=== PATIENT | male | born 1950 | race Caucasian/White ===

== ENCOUNTER 2017-04-26 16:42 | Emergency (ER) | payer MEDICARE, BC | END 2017-04-26 18:27 | disposition home or self-care (01) | LOC: SCSER 16:42 | DX: S61.201A Unspecified open wound of left index finger without damage to nail, initial encounter (principal); E78.5 Hyperlipidemia, unspecified; I10 Essential (primary) hypertension; Z87.891 Personal history of nicotine dependence; I48.91 Unspecified atrial fibrillation; Z79.899 Other long term (current) drug therapy; Z23 Encounter for immunization; W26.0XXA Contact with knife, initial encounter | CPT/HCPCS: 99283 ==

== ENCOUNTER 2017-07-25 17:34 | Emergency (ER) | payer MEDICARE, BC ==
[2017-07-25] MEDS ORDERED: Metoclopramide HCl 10 MG/2 ML VIAL ONE (17:44)
[2017-07-25] MEDS ORDERED: diphenhydrAMINE 50 MG/ML VIAL ONE (17:44)
[2017-07-25] MEDS ORDERED: Ketorolac Tromethamine 30 MG/ML VIAL ONE (18:09)
--- NOTE | 2017-07-25 18:30 | CT ---
CT OF HEAD NONCONTRAST: Indication: Pain. FINDINGS: No intracranial hemorrhage, mass effect, midline shift or ventriculomegaly. Minimal paranasal sinus m ucosal thickening is present. IMPRESSION: No acute intracranial abnormalities. POS: [facility]
== END 2017-07-25 18:46 | disposition home or self-care (01) ==
LOC: SCSER 17:34
DX: R51 Headache (principal); I48.91 Unspecified atrial fibrillation; E78.5 Hyperlipidemia, unspecified; I10 Essential (primary) hypertension; F17.220 Nicotine dependence, chewing tobacco, uncomplicated; Z79.899 Other long term (current) drug therapy
CPT/HCPCS: 70450; 96365; 96375; J1200; J1885; J2765

== ENCOUNTER 2018-01-07 06:56 | Observation (INO) | payer MEDICARE, BC ==
[2018-01-07 07:20] LABS: #Basophils 0.1 thou/uL (0.0-0.2); #Eosinphils 0.2 thou/uL (0.0-0.7); #Monocytes 0.6 thou/uL (0.11-0.59); #Neutrophils 4.9 thou/uL (1.40-6.50); %Eosinophils 2.7 % (0.0-10.0); %Lymphocytes 25.8 % (21.0-51.0); %Monocytes 7.2 % (0.0-10.0); %Neutrophils 63.4 % (42.0-75.0); Hemoglobin 14.4 g/dL (14.0-18.0); Mean Corpuscular HGB CONC 36.3 g/dL (32.0-36.0); Mean Corpuscular Hemoglobin 30.3 pg (27.0-31.0); Mean Corpuscular Volume 83.4 fL (78.0-98.0); Mean Platelet Volume 6.5 fL (7.4-10.4); Platelet Count 223 thou/uL (130-400); RBC Distribution Width 12.2 % (11.5-14.5); Red Blood Cell (RBC) Count 4.75 mill/uL (4.70-6.10); White Blood Cell (WBC) Count 7.7 thou/uL (4.8-10.8)
[2018-01-07 07:39] LABS: ALT (SGPT) 29 U/L (8-55); AST (SGOT) 18 U/L (5-34); Albumin 3.9 g/dL (3.4-4.8); Alkaline Phosphatase 107 U/L (40-150); Anion Gap 12 mmol/L (10-20); BUN (Urea Nitrogen) 13 mg/dL (8.4-25.7); Bilirubin, Total 0.4 mg/dL (0.2-1.2); Calc. Creatinine Clearance 0 mL/min (70-130); Carbon Dioxide 22 mmol/L (23-31); Chloride 109 mmol/L (98-107); Estimated GFR-MDRD 86; Globulin 2.6 g/dL (2.4-3.5); Glucose 110 mg/dL (80-115); Potassium 3.3 mmol/L (3.5-5.1); Protein, Total 6.5 g/dL (5.8-8.1); Sodium 140 mmol/L (136-145)
[2018-01-07] MEDS ORDERED: Ondansetron ODT 4 MG TAB SL PRN (10:34)
[2018-01-07] MEDS ORDERED: Sodium Chloride 0.9% 1,000 ML IV SCH (10:34)
[2018-01-07] MEDS ORDERED: Ondansetron HCl/PF 4 MG/2 ML Vial IVP PRN ×2 (10:34→12:59)
[2018-01-07 10:36] VITALS: BMI 26.5
[2018-01-07] MEDS ORDERED: Fleet Enema 133 ML BOT PR SCH (11:30)
--- NOTE | 2018-01-07 12:42 | HP ---
DATE OF ADMISSION: 01/07/2018 CHIEF COMPLAINT: Hematochezia. HISTORY OF PRESENT ILLNESS: The patient is a 67-year-old male with past medical history of atrial fi brillation, not on anticoagulation, hyperlipidemia, hypertension, migraines, and osteoarthritis, pres enting with complaints of hematochezia. He underwent colonoscopy on 01/06/2018 with the findings of a 3 mm polyp within the sigmoid colon that was removed with hot snare polypectomy. He also had a 1.2 cm polyp in the rectosigmoid area that was removed in piecemeal fashion with hot snare polypectomy i n addition to treatment with argon plasma coagulation. After the procedure, he did not have any prob lems and was able to tolerate both solid and liquid meals up until last night when he had the acute o nset of bright red blood per rectum. The hematochezia was characterized as blood present both in the toilet and on the toilet paper itself with approximately 1/4 cup to 1/2 cup of blood. This was not always associated with the passage of stool, but instead he did have bowel movements consisting only of blood. He did have some mild dizziness associated with this passage of hematochezia both yesterda y and today, but has been minimal with no loss of consciousness. He also endorses increased suprapub ic abdominal pain today, characterizes a cramping type sensation, intermittent, nonradiating and woul d reach a severity of 3-4/10. There has been no clear alleviating or exacerbating factors during thi s admission. Otherwise, he denies any nausea, vomiting, fevers, chills, hematemesis, melena, weight loss, dysphagia or odynophagia. REVIEW OF SYSTEMS: A 10-category review of systems was obtained with all responses negative except f or the pertinent positives as listed in the HPI. PAST MEDICAL HISTORY: As per HPI. PAST SURGICAL HISTORY: Cardiac ablation, anal fissure repair, bilateral shoulder surgeries (multiple ), wrist fusion, left thumb reattached, knuckle replacement x3 and bicep tendon repair. FAMILY HISTORY: Denies any GI malignancies. SOCIAL HISTORY: Denies any tobacco, alcohol or illicit drug use. Prior heavy use of alcohol, but no ne currently. OUTPATIENT MEDICATIONS: Atenolol 75 mg daily, tamsulosin 0.4 mg daily, sertraline 150 mg daily, simv astatin 40 mg daily, trazodone 100 mg daily, tramadol 50 mg as needed every 6 hours, diclofenac 75 mg twice daily, butalbital/acetaminophen/caffeine as needed. ALLERGIES: CODEINE (itching). PHYSICAL EXAMINATION: VITAL SIGNS: Temperature 97.8, pulse 53, blood pressure 151/83, respiratory rate 14, satting 97% on room air. GENERAL: The patient is lying in bed with no acute distress. Alert and oriented x4. NECK: Supple. No JVD noted. CARDIOVASCULAR: Bradycardic rate with no discernible murmurs, gallops or rubs. Normal rhythm. RESPIRATORY: Clear to auscultation bilaterally with no discernible wheezes or rales. ABDOMEN: Normoactive bowel sounds, soft, nondistended, mild tenderness to palpation in the right low er quadrant and suprapubic regions. EXTREMITIES: No cyanosis, clubbing or edema. LABORATORY DATA: CBC with a white blood cell count of 7.7, hemoglobin 14.4, hematocrit 39.7, platele ts 223,000. Chemistry with a sodium of 140, potassium 3.3, chloride 109, CO2 22, BUN 13, creatinine 0.39, glucose 110. AST 18, ALT 29, alkaline phosphatase 107, total bilirubin 0.4, albumin 3.9. IMAGING DATA: No current GI imaging is available for review. However, he did have colonoscopy perfo rmed on 01/06/2018 showing the presence of a 3 mm sigmoid colon polyp and a 1.2 cm rectosigmoid colon polyp, both removed with hot snare polypectomy. ASSESSMENT AND PLAN: The patient is a 67-year-old male with past medical history of atrial fibrillat ion, hyperlipidemia, hypertension, migraines and osteoarthritis, presenting with hematochezia, consis tent with a post-polypectomy bleed. Post-polypectomy bleeding. The patient is presenting with the acute onset of bright red blood per re ctum characterizes approximately 1/4 cup to 1/2 cup of blood that was associated with and without the passage of stool. Given that he had a recent colonoscopy yesterday with a large, difficult to remov e polyp in the rectosigmoid colon, it is likely that he is bleeding from this particular source. Dif ferential could also include diverticular bleeding (the patient did have diverticulosis present on 's exam) arteriovenous malformation, Dieulafoy lesion or injury from the colonoscopy itself (u nlikely). RECOMMENDATIONS: 1. We would continue patient n.p.o. status in preparation for procedure later on this afternoon. 2. We will perform a flexible sigmoidoscopy for evaluation of the rectosigmoid area as this is the p robable source of bleeding. We will administer Fleets enemas x2 prior to the procedure. 3. Would continue to trend H&H and transfuse as necessary to maintain an H&H of 7/. 4. Continue to monitor clinically for signs of active GI bleeding. 5. Further recommendations to follow flexible sigmoidoscopy. We will continue to follow. Please call with any questions.
[2018-01-07] MEDS ORDERED: Promethazine HCl 25 MG/ML VIAL IM PRN (12:59)
[2018-01-07] MEDS ORDERED: Promethazine HCl 25 MG/ML VIAL SLOW IVP PRN (12:59)
[2018-01-07] MEDS ORDERED: Lidocaine 1% PF 5 ML VIAL ONE (14:21)
[2018-01-07] MEDS ORDERED: PROPOFOL 200 MG/20 ML VIAL ONE (14:21)
--- NOTE | 2018-01-07 15:59 | OP ---
DATE OF PROCEDURE: 01/07/2018 PROCEDURE: Flexible sigmoidoscopy with control of hemorrhage. INDICATION FOR PROCEDURE: Hematochezia, post-polypectomy bleed. DESCRIPTION OF PROCEDURE: After the risks and benefits of the procedure were explained to the patien t including risks of bleeding, infection, perforation, reaction to anesthesia and/or pain, informed c onsent was obtained. The patient was then taken to the endoscopy suite where deep sedation was admin istered via propofol and anesthesia support. Once adequate sedation was achieved, the standard colon oscope was introduced into the rectum and advanced to approximately 80 cm past the anal verge at [facility] a large amount of both solid and liquid stool impeded further progress. The quality of the p rep was poor. The patient tolerated the procedure well with no immediate perioperative complications . DIGITAL RECTAL EXAM: Normal. COLON FINDINGS: A large amount of both solid and liquid stool was seen in the distal transverse and proximal descending colon significantly limiting visualization of the colonic mucosa. Aggressive irr igation and suctioning was performed in the descending, sigmoid colon, and rectum with moderate impro vement in mucosal visualization of the mucosa seen and 8-9 mm ulceration was seen in the sigmoid colo n that appeared to be in a state of healing. He did not have any evidence of active/recent bleeding associated with it nor did it have any high risk stigmata of bleeding. However, a 2-2.5 cm ulceratio n was seen in the rectum at approximately 13 cm past the anal verge. This ulceration did exhibit mil d oozing of blood as well as a red spot along the left lateral aspect of the ulceration consistent wi th high risk stigmata of bleeding. Hemoclips x6 were then placed to approximate the mucosal defect w ith good hemostasis achieved. Minimal bleeding was noted during and after the procedure. The proced ure was then terminated with no rectal retroflexion for fear of dislodging the Hemoclips. IMPRESSION: 1. Large amount of retained solid and liquid stool seen in the proximal transverse colon further imp eding progress and visualization of the colonic mucosa. Aggressive irrigation and suctioning was per formed of the descending, sigmoid, and rectum with adequate visualization for purposes of gastrointes tinal bleeding. 2. An 8-9 mm ulceration seen in the sigmoid colon without evidence of active/recent bleeding. 3. An 2-2.5 cm ulceration seen in the rectum at 13 cm past the anal verge with evidence of active/re cent bleeding, status post Hemoclip placement x6 with good hemostasis achieved. RECOMMENDATIONS: 1. We would continue to trend hemoglobin and hematocrit and transfuse as necessary to maintain hemog lobin and hematocrit of 7/21. 2. Continue to monitor clinically for signs of active gastrointestinal bleeding. 3. Continue to monitor overnight given increased risk of bleeding from this particular site. 4. We will place the patient on clear liquid diet for now.
[2018-01-07] MEDS ORDERED: Acetaminophen 500 MG TAB PO PRN (16:20)
[2018-01-07] MEDS ORDERED: traZODone HCl 50 MG TAB PO PRN (20:12)
[2018-01-08 05:58] LABS: #Eosinphils 0.2 thou/uL (0.0-0.7); #Lymphocytes 1.5 thou/uL (1.20-3.40); #Monocytes 0.6 thou/uL (0.11-0.59); #Neutrophils 4.7 thou/uL (1.40-6.50); %Basophils 0.4 % (0.0-1.0); %Eosinophils 2.7 % (0.0-10.0); %Lymphocytes 21.6 % (21.0-51.0); %Monocytes 8.4 % (0.0-10.0); %Neutrophils 66.9 % (42.0-75.0); Hemoglobin 13.3 g/dL (14.0-18.0); Mean Corpuscular Hemoglobin 30.4 pg (27.0-31.0); Mean Corpuscular Volume 89.6 fL (78.0-98.0); Platelet Count 178 thou/uL (130-400); RBC Distribution Width 13.1 % (11.5-14.5); Red Blood Cell (RBC) Count 4.36 mill/uL (4.70-6.10)
[2018-01-08 08:04] VITALS: BP 136/76; TEMP 97.9
--- NOTE | 2018-01-08 17:34 | DIS ---
DATE OF ADMISSION: 01/07/2018 DATE OF DISCHARGE: 01/08/2018 REASON FOR ADMISSION: Hematochezia, post-polypectomy bleed. HOSPITAL COURSE: The patient is a 67-year-old male with past medical history of atrial fibrillation, not on anticoagulation, hyperlipidemia, hypertension, migraines, and osteoarthritis who initially pr esented with complaints of hematochezia. He had undergone colonoscopy on 01/06/2018 with the finding of a 3 mm polyp within the sigmoid colon that was removed with hot snare polypectomy. However, he a lso had a 1.2 cm polyp in the rectosigmoid area that was removed in piecemeal fashion with hot snare polypectomy. With the increase in his hematochezia, this was felt to be due to a post-polypectomy bl eeding. Subsequently, he underwent flexible sigmoidoscopy on 01/07/2018 with large ulcerations seen in the rectosigmoid region at approximately 13 cm past the anal verge, this ulceration did exhibit m ild oozing of blood as well as a dark red spot along the left lateral aspect of the ulceration consid er to be high risk stigmata of bleeding. The mucosal defect was then approximated with approximately 6 Hemoclips with good hemostasis achieved. After the procedure, he exhibited no further evidence of hematochezia with stable H&H following morning as well as remaining hemodynamically stable over that time period as well. He was ultimately discharged to home with followup in the GI clinic. OUTPATIENT MEDICATIONS: The patient was given instructions to resume all of his outpatient medicatio ns. DIET: The patient can resume normal regular diet. ACTIVITY: The patient can resume normal physical activity ad amish as needed. FOLLOWUP: The patient was given instructions to follow up in the GI clinic as needed or if you exper ience any additional hematochezia.
== END 2018-01-08 11:00 | disposition home or self-care (01) ==
LOC: SCSER 06:56 → SURG A 07:50
PROVIDERS: ADMIT Internal Medicine; ATTEND Internal Medicine
PROC: 0W3P8ZZ Control Bleeding in Gastrointestinal Tract, Via Natural or Artificial Opening Endoscopic (ICD-10-PCS; principal; 2018-01-07)
DX: K91.840 Postprocedural hemorrhage of a digestive system organ or structure following a digestive system procedure (principal); E78.5 Hyperlipidemia, unspecified; I10 Essential (primary) hypertension; Z88.0 Allergy status to penicillin; Z79.899 Other long term (current) drug therapy
CPT/HCPCS: 45334; 80053; 85025 ×2; 86850; 86900; 86901; 94760; 96360; 96361 ×2; 99284; G0378; 36415; J2001; J2704

== ENCOUNTER 2018-02-15 18:34 | Emergency (ER) | payer MEDICARE, BC ==
[2018-02-15] MEDS ORDERED: Dexamethasone 10 MG/ML VIAL ONE ×2 (20:20→20:23)
--- NOTE | 2018-02-15 20:21 | RAD ---
TWO VIEWS OF THE CHEST: 02/15/18 COMPARISON: 02/14/13. HISTORY: Upper respiratory infection/cough. FINDINGS: Two views of the chest show normal sized cardiomediastinal silhouette. There is no evidence of consol idation, mass, or pleural effusion. Postsurgical changes are seen in both shoulders. IMPRESSION: No evidence of acute cardiopulmonary disease. POS: [facility]
== END 2018-02-15 20:45 | disposition home or self-care (01) ==
LOC: SCSER 18:34
DX: J06.9 Acute upper respiratory infection, unspecified (principal); J20.9 Acute bronchitis, unspecified; G47.30 Sleep apnea, unspecified; I48.91 Unspecified atrial fibrillation; E78.5 Hyperlipidemia, unspecified; F41.9 Anxiety disorder, unspecified; F17.220 Nicotine dependence, chewing tobacco, uncomplicated; Z79.899 Other long term (current) drug therapy
CPT/HCPCS: 71046; 96372; J1100; J7620

== ENCOUNTER 2018-06-16 17:47 | Emergency (ER) | payer MEDICARE, BC ==
[2018-06-16] MEDS ORDERED: Bacitracin Zinc 1 Packet ONE (18:46)
--- NOTE | 2018-06-16 18:58 | RAD ---
RIGHT THUMB RADIOGRAPHS THREE VIEWS 06/16/18 PROVIDED CLINICAL HISTORY: Injury. FINDINGS: There is no evidence for fracture or other acute osseous abnormality. If there is peristent clinical concern, conservative management and followup imaging are advised. IMPRESSION: As above. POS: [facility]
== END 2018-06-16 18:54 | disposition home or self-care (01) ==
LOC: SCSER 17:47
DX: S61.011A Laceration without foreign body of right thumb without damage to nail, initial encounter (principal); I49.9 Cardiac arrhythmia, unspecified; G47.30 Sleep apnea, unspecified; I48.91 Unspecified atrial fibrillation; E78.5 Hyperlipidemia, unspecified; I10 Essential (primary) hypertension; F41.9 Anxiety disorder, unspecified; Z87.891 Personal history of nicotine dependence; W29.4XXA Contact with nail gun, initial encounter

== ENCOUNTER 2018-07-22 09:21 | Emergency (ER) | payer MEDICARE, BC ==
--- NOTE | 2018-07-22 10:21 | RAD ---
TWO VIEWS OF THE CHEST: COMPARISON: 02/15/2018. HISTORY: Shortness of breath and cough. FINDINGS: Two views of the chest show normal sized cardiomediastinal silhouette. There is no evidence of consol idation, mass, or pleural effusion. Hardware is seen in both shoulders from bilateral shoulder surger y. IMPRESSION: No evidence of acute cardiopulmonary disease. POS: [facility]
== END 2018-07-22 10:40 | disposition home or self-care (01) ==
LOC: SCSER 09:21
DX: J20.9 Acute bronchitis, unspecified (principal); I48.91 Unspecified atrial fibrillation; G47.30 Sleep apnea, unspecified; E78.5 Hyperlipidemia, unspecified; I10 Essential (primary) hypertension; F41.9 Anxiety disorder, unspecified; Z87.891 Personal history of nicotine dependence; Z79.899 Other long term (current) drug therapy
CPT/HCPCS: 71046; 87804; 94640; J7620

== ENCOUNTER 2018-11-20 08:22 | Emergency (ER) | payer MEDICARE, BC ==
[2018-11-20] MEDS ORDERED: Ketorolac Tromethamine 30 MG/ML VIAL ONE (08:48)
[2018-11-20] MEDS ORDERED: Morphine 4 MG/ML VIAL ONE (08:48)
--- NOTE | 2018-11-20 10:26 | RAD ---
LUMBAR SPINE 2 VIEWS: HISTORY: Low back pain. FINDINGS: Comparison is made with the exam of 02/14/2013. There are degenerative changes most prominent at L4-5 and L5-S1 levels. No fracture, subluxation, or bony destruction is seen. IMPRESSION: Lumbar spondylosis. POS: [facility]
== END 2018-11-20 09:28 | disposition home or self-care (01) ==
LOC: SCSER 08:22
DX: M54.5 Low back pain (principal); G47.30 Sleep apnea, unspecified; I48.91 Unspecified atrial fibrillation; E78.5 Hyperlipidemia, unspecified; I10 Essential (primary) hypertension; F41.9 Anxiety disorder, unspecified; Z87.891 Personal history of nicotine dependence; Z79.899 Other long term (current) drug therapy
CPT/HCPCS: 72100; 96372; J1885; J2270

== ENCOUNTER 2019-01-01 09:04 | Emergency (ER) | payer MEDICARE, BC ==
[2019-01-01] MEDS ORDERED: Lidocaine 1% w/Epinephrine 1:100K 20 ML VIAL ONE (09:27)
[2019-01-01] MEDS ORDERED: Lidocaine 1% 20 ML MDV ONE (09:28)
--- NOTE | 2019-01-01 09:40 | RAD ---
EXAM: XR Finger(s) Lt Min 2 View DATE: 01/01/2019 9:15 AM INDICATION: Foreign body in the left index finger COMPARISON: None. FINDING: There is advanced osteoarthrosis involving the left index and long finger IP joints. There is erosive change involving the metacarpal phalangeal heads with hooked osteophytes of the index and long finger. No overt radiopaque foreign body is evident. IMPRESSION: 1. No acute fracture or subluxation. 2. No radiopaque foreign body. 3. Erosive change with hooked osteophytes involving the index and long finger metacarpal heads can be seen with entities such as CPPD deposition disease and hemachromatosis. 4. Prominent IP osteoarthrosis of the left index and long finger.
[2019-01-01] MEDS ORDERED: Bacitracin 1 PK ONE (09:52)
== END 2019-01-01 10:06 | disposition home or self-care (01) ==
LOC: SCSER 09:04
DX: S60.451A Superficial foreign body of left index finger, initial encounter (principal); G47.30 Sleep apnea, unspecified; I48.91 Unspecified atrial fibrillation; E78.5 Hyperlipidemia, unspecified; I10 Essential (primary) hypertension; F41.9 Anxiety disorder, unspecified; Z87.891 Personal history of nicotine dependence; Z79.899 Other long term (current) drug therapy; W45.8XXA Other foreign body or object entering through skin, initial encounter
CPT/HCPCS: J2001

== ENCOUNTER 2019-03-06 12:56 | Outpatient (CLI) | payer MEDICARE, BC ==
--- NOTE | 2019-03-06 15:53 | MRI ---
MRI Lumbar Spine Noncontrast: HISTORY: Pain COMPARISON: MRI LUMBAR SPINE: No prior MRI exams available FINDINGS: Conus medullaris is normal in morphology and terminates at the L2 level. Distention of the partially imaged urinary bladder. Slight fullness of each renal pelvis. Small exoph ytic cyst emanates posteriorly from the left kidney. Suggestion of a right adrenal mass although not reliably assessed. L1-2:Mild disc bulge without significant stenosis. Mild disc space narrowing. Moderate right and mild left facet osteoarthritis. L2-3:Minimal disc bulge without significant stenosis. Mild facet osteoarthritis. L3-4:Left paracentral through subarticular disc protrusion, superimposed upon disc osteophyte complex . There is mild to moderate central canal stenosis and crowding of the traversing left L4 nerve root. No high-grade foraminal stenosis. Moderate right and mild left facet osteoarthritis. L4-5:Central disc protrusion superimposed on broad-based disc osteophyte. There is mild central canal stenosis. Evidence of prior right hemilaminectomy. Crowding of the bilateral traversing L5 nerve roots, more pronounced on the right, and there is mild bilateral neural foraminal stenosis. Moderate bilateral facet osteoarthritis. L5-S1:Suggestion of prior laminotomy. Thecal sac is patent. There is broad-based disc osteophyte with moderate left and [id number] right neural foraminal stenosis, due to disc osteophyte formation and moderate bilateral facet osteoarthritis. Postcontrast imaging reveals no evidence of mass-producing enhancement within the vertebral canal. IMPRESSION: Multilevel degenerative change of the postoperative lumbar spine, as above. There is no mass-producing enhancement within the vertebral canal identified. Incidental note of signal alteration of right adrenal gland. This could relate to a right adrenal mas s such as a myelolipoma, although cannot be fully evaluated on the basis of this exam. Recommend follow-up adrenal mass protocol Limited CT abdomen. Telephone call with findings placed to patient's physician Dr. Miguel Patel. Transcribed Date/Time: 03/06/2019 4:22 PM
== END 2019-03-06 12:57 | disposition home or self-care (01) ==
LOC: SCSMRI 12:56
PROVIDERS: ATTEND Family Medicine
DX: M54.42 Lumbago with sciatica, left side (principal); M47.816 Spondylosis without myelopathy or radiculopathy, lumbar region; Z98.890 Other specified postprocedural states
CPT/HCPCS: 72158; 82565

== ENCOUNTER 2019-03-17 08:29 | Outpatient (CLI) | payer MEDICARE, BC ==
--- NOTE | 2019-03-17 11:53 | CT ---
CT ABDOMEN WITH AND WITHOUT CONTRAST: Date: 03/17/19 INDICATION: Adrenal mass, follow-up. Reference made to prior MRI lumbar spine dated 03/06/19. FINDINGS: Situated at the cephalad aspect of the medial limb of the left adrenal gland, there is a 1.4 cm AP x 0.9 cm transverse fat density mass consistent with an adrenal myelolipoma. No evidence of left adrena l mass. There is a lobular contour of the right kidney, likely related to areas of cortical scar. No hydronep hrosis of either kidney. The pancreas is unremarkable. No acute abnormality of the liver or spleen. There is scarring of the imaged lung bases. Osseous degenerative changes are present. Scattered vascu lar calcification. Imaged abdominal aorta is normal in caliber. IMPRESSION: Evidence of a right adrenal myelolipoma. POS: [facility]
== END 2019-03-17 08:30 | disposition home or self-care (01) ==
LOC: SCSCT 08:29
PROVIDERS: ATTEND Family Medicine
DX: E27.8 Other specified disorders of adrenal gland (principal); D17.79 Benign lipomatous neoplasm of other sites
CPT/HCPCS: 74170

== ENCOUNTER 2019-04-19 07:59 | Outpatient (CLI) | payer MEDICARE, BC ==
--- NOTE | 2019-04-19 08:26 | RAD ---
EXAM: XR Thoracic Spine 2 View DATE: 04/19/2019 12:00 AM INDICATION: Back pain COMPARISON: Chest radiograph dated July 22, 2018. FINDING: There is a stable chronic mild wedge compression abnormality at T9. There is pchs-dm-[id number] te multilevel disc degenerative disease of the visualized thoracolumbar spine. Mild thoracolumbar spinal curvature is stable. Visualized lungs are clear. IMPRESSION: 1. No acute osseous abnormality. 2. Stable mild wedge compression abnormality at T9. 3. Stable ifud-tf-[id number] multilevel spondylosis of the thoracic spine.
--- NOTE | 2019-04-19 09:07 | MRI ---
MR OF THE THORACIC SPINE WITHOUT CONTRAST INDICATION: Spondylosis with myelopathy TECHNIQUE: Multiplanar multisequence MR images were obtained of the thoracic spine without contrast. Spine count series was provided. COMPARISON: Thoracic spine radiographs dated April 19, 2019 FINDINGS: Bone marrow signal intensity: Normal Spinal alignment: Normal Spinal cord: Normal signal intensity and contour. Paravertebral soft tissues: Normal Vertebral levels: T1-T2: No appreciable central canal or neural foraminal narrowing is evident. T2-T3: No appreciable central canal or neural foraminal narrowing. T3-T4: No appreciable central canal or neural foraminal narrowing. T4-T5: No appreciable central canal or neural foraminal narrowing. T5-T6: No appreciable central canal or neural foraminal narrowing. T6-T7: No appreciable central canal or neural foraminal narrowing. T7-T8: No appreciable central canal or neural foraminal narrowing. T8-T9: No appreciable central canal or neural foraminal narrowing. T9-T10: There is a small left paracentral disc protrusion at T9-T10 without appreciable central canal or neural foraminal narrowing. T10-T11: No appreciable central canal or neural foraminal narrowing is demonstrated. T11-T12: No appreciable central canal or neural foraminal narrowing. T12-L1: No appreciable central canal or neural foraminal narrowing. Additional findings: There is a chronic wedge compression abnormality at T9. No acute fracture is ev ident. There is partial ankylosis of the anterior aspects of the T11 and T12 vertebral bodies. IMPRESSION: 1. Mild multilevel thoracic spondylosis. No central canal or neural foraminal narrowing is demonstrat ed. 2. Chronic wedge compression abnormality at T9. 3. 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
== END 2019-04-19 08:00 | disposition home or self-care (01) ==
LOC: TBSIIMAG 07:59
PROVIDERS: ATTEND Family Medicine
DX: M47.814 Spondylosis without myelopathy or radiculopathy, thoracic region (principal); M48.54XA Collapsed vertebra, not elsewhere classified, thoracic region, initial encounter for fracture; M43.24 Fusion of spine, thoracic region
CPT/HCPCS: 72070; 72146

== ENCOUNTER 2020-07-19 06:01 | Day surgery (SDC) | payer MEDICARE, BC ==
[2020-07-18 10:40] VITALS: BMI 30.1
[2020-07-19] MEDS ORDERED: Levofloxacin 500 mg/D5W 100 ml Premix Bag ONE (06:18)
[2020-07-19] MEDS ORDERED: Famotidine/PF 20 mg/2ml Vial ONE (06:33)
[2020-07-19] MEDS ORDERED: Fentanyl 100 MCG/2 ML VIAL ONE (06:33)
[2020-07-19] MEDS ORDERED: Midazolam HCl 2 mg/2 ml Vial ONE (06:33)
[2020-07-19] MEDS ORDERED: Ondansetron PF 4 MG/2 ML Vial ONE (06:34)
[2020-07-19] MEDS ORDERED: Propofol 1,000 MG/100 ML VIAL IV ONE (06:34)
[2020-07-19] MEDS ORDERED: B & O ONE (07:33)
--- NOTE | 2020-07-19 08:46 | OP ---
DATE OF PROCEDURE: 07/19/2020 SERVICE: Urology. PREOPERATIVE DIAGNOSIS: Benign prostatic hypertrophy with urinary obstruction. POSTOPERATIVE DIAGNOSIS: Benign prostatic hypertrophy with urinary obstruction. PROCEDURE PERFORMED: UroLift with eight implants. INDICATIONS FOR PROCEDURE: Mr. Garcia is a 70-year-old white male with BPH and urinary complaints. He is already taking Flomax and finasteride without adequate relief of symptoms. He has requested for a UroLift procedure and after workup with discussion of risks and benefits, he has agreed to proceed forward. DESCRIPTION OF PROCEDURE: After identification of armband and verification of consent, the patient was brought back to the operating room, where he underwent total intravenous anesthesia. He was placed in the dorsal lithotomy position and prepped and draped in the usual sterile fashion. After appropriate time-out, a lubricated 21-Gibraltarian rigid cystoscope with visual obturator for the UroLift was inserted through the urethra into the prostate. The prostate showed hypertrophy that had previously been described on outpatient cystoscopy. The visual obturator was then switched out for the UroLift implant gun. The first implant was placed toward the patient's base of the prostate on the left side by anteriorly lifting the prostate and applying 20 degrees of lateral compression. The blue trigger was fired to deploy the Nitinol needle. Tension was set with a roberson trigger, and then the UroLift advanced forward until the white line was seen in the keyhole, and then the urethral end piece deployed using the back blue trigger. The UroLift was then repeated on the patient's right bladder base and then two more at the left and right apex. There was a significant amount of pillowing at the right mid prostate and left anterior prostate where two more UroLift implants were applied. This resulted in very nice opening of the mid and base of the prostate, but there was still apical obstructing tissue, so two additional implants were placed on the left and right side at the apex, which resulted in extremely nice opening of the entire prostate. At this point, I felt no further implants were necessary. The UroLift device was removed, and an 18-Gibraltarian Burgess catheter with 10 cubic centimeters of sterile water placed into the bladder. A B and O suppository were placed, and the catheter was affixed to a gravity bag. The patient was then taken out of positioning, awakened, and taken to PACU for recovery in stable condition. COMPLICATIONS: None. ESTIMATED BLOOD LOSS: Minimal. RETAINED TUBES AND DRAINS: 18-Gibraltarian Burgess catheter to gravity drainage. SPECIMENS: None. DISPOSITION: The patient will be discharged home and follow up with me in approximately 1 to 2 weeks for postop check. Job ID: [id number]
[2020-07-19] MEDS ORDERED: HYDROcodone/Acetaminophen 5/325 mg Tablet ONE (09:10)
[2020-07-19] MEDS ORDERED: Morphine 2 MG/ML VIAL ONE (12:40)
== END 2020-07-19 13:54 | disposition home or self-care (01) ==
LOC: SDC 06:01
PROVIDERS: ATTEND Urology
PROC: 0T7D8DZ Dilation of Urethra with Intraluminal Device, Via Natural or Artificial Opening Endoscopic (ICD-10-PCS; principal; 2020-07-19)
DX: N40.1 Benign prostatic hyperplasia with lower urinary tract symptoms (principal); R35.0 Frequency of micturition; R35.1 Nocturia; R39.12 Poor urinary stream; N13.8 Other obstructive and reflux uropathy; R39.14 Feeling of incomplete bladder emptying; E27.8 Other specified disorders of adrenal gland; I48.91 Unspecified atrial fibrillation; G47.33 Obstructive sleep apnea (adult) (pediatric); G89.4 Chronic pain syndrome; Z79.899 Other long term (current) drug therapy; Z88.0 Allergy status to penicillin
CPT/HCPCS: J2270; L8699; J1956; J2250; J2405; J2704; J3010; S0028

== ENCOUNTER 2020-12-02 09:15 | Outpatient (CLI) | payer MEDICARE, BC ==
[2020-07-16 11:02] LABS: Hemoglobin 13.4 g/dL (13.5-17.5); Mean Corpuscular HGB CONC 31.8 g/dL (32.0-36.0); Mean Corpuscular Hemoglobin 28.5 pg (27.0-33.0); Mean Corpuscular Volume 89.8 fl (81.2-95.1); Mean Platelet Volume 9.8 fl (7.4-10.4); Platelet Count 227 10x3/uL (150-450); White Blood Cell (WBC) Count 5.4 10x3/uL (3.5-10.5)
[2020-07-16 11:16] LABS: Anion Gap 10 mmol/L (10-20); BUN (Urea Nitrogen) 9 mg/dL (8.4-25.7); Calc. Creatinine Clearance 0 mL/min (70-130); Calcium 8.9 mg/dL (7.8-10.44); Carbon Dioxide 27 mmol/L (23-31); Chloride 106 mmol/L (98-107); Glucose 96 mg/dL (80-115); Potassium 4.1 mmol/L (3.5-5.1); Sodium 139 mmol/L (136-145)
[2020-07-16 11:23] LABS: Bilirubin Neg (Negative); Blood, Urine Negative (Negative); Glucose, Urine (Dipstick) Normal (Negative); Ketone, Urine Negative (Negative); Leukocyte Negative (Negative); Nitrite Negative (Negative); Protein, Urine (Dipstick) Negative (Neg-Trace); Specific Gravity, Urine 1.015 (1.002-1.036); Urobilinogen Normal mg/dL (Less than 2)
[2020-07-16 11:26] LABS: PTT 25.9 sec (22.0-33.0); Prothrombin Time 10.7 sec (9.5-12.1)
[2020-07-16 11:45] LABS: Clarity Clear (Clear)
[2020-07-16 12:18] LABS: Bacteria/HPF None Seen HPF (None Seen); RBC/HPF None Seen HPF (0-3); Squamous Epithelial None Seen HPF (0-3); WBC/HPF None Seen HPF (0-3)
[2020-07-17 00:46] LABS: SARS-CoV-2 PCR by NAA Not Detected (NotDetected)
[2020-12-02 12:15] LABS: Prothrombin Time 10.9 sec (9.5-12.1)
[2020-12-02 12:26] LABS: Anion Gap 15 mmol/L (10-20); BUN (Urea Nitrogen) 15 mg/dL (8.4-25.7); Calc. Creatinine Clearance 0 mL/min (70-130); Calcium 9.5 mg/dL (7.8-10.44); Carbon Dioxide 24 mmol/L (23-31); Chloride 105 mmol/L (98-107); Glucose 94 mg/dL (80-115); Potassium 4.6 mmol/L (3.5-5.1); Sodium 139 mmol/L (136-145)
[2020-12-02 12:38] LABS: Hemoglobin 14.1 g/dL (13.5-17.5); Mean Corpuscular HGB CONC 32.8 g/dL (32.0-36.0); Mean Corpuscular Hemoglobin 29.6 pg (27.0-33.0); Mean Corpuscular Volume 90.3 fl (81.2-95.1); Mean Platelet Volume 9.8 fl (7.4-10.4); Platelet Count 240 10x3/uL (150-450); RBC Distribution Width 14.2 % (11.5-14.5); Red Blood Cell (RBC) Count 4.76 10x6/uL (4.32-5.72); White Blood Cell (WBC) Count 6.4 10x3/uL (3.5-10.5)
== END 2020-12-02 09:16 | disposition home or self-care (01) ==
LOC: LABBT 09:15
PROVIDERS: ATTEND Internal Medicine Cardiovascular Disease
DX: Z01.818 Encounter for other preprocedural examination (principal); I48.91 Unspecified atrial fibrillation; Z20.822 Contact with and (suspected) exposure to COVID-19
CPT/HCPCS: 80048; 81001; 85027; 85610; 85730; 87086; 93005; U0003; U0005; 93010

== ENCOUNTER 2020-12-04 06:13 | Observation (INO) | payer MEDICARE, BC ==
[2020-12-03 10:28] VITALS: BMI 27.2
[2020-12-04] MEDS ORDERED: Isoproterenol 0.2 MG/1 ML AMP ONE ×2 (06:40→10:10)
[2020-12-04] MEDS ORDERED: Heparin 25,000 units/D5W 500 ML ONE (06:40)
[2020-12-04] MEDS ORDERED: Heparin 10,000 UNITS/ 10 ML VIAL ONE (06:40)
[2020-12-04] MEDS ORDERED: Fentanyl 100 MCG/2 ML VIAL ONE (07:10)
[2020-12-04] MEDS ORDERED: ePHEDrine Sulfate 50 MG/10 ML VIAL ONE (07:58)
[2020-12-04] MEDS ORDERED: Lidocaine 1% PF 5 ML VIAL ONE (07:58)
[2020-12-04] MEDS ORDERED: PROPOFOL 200 MG/20 ML VIAL ONE (07:58)
[2020-12-04] MEDS ORDERED: Ondansetron PF 4 MG/2 ML Vial ONE (07:58)
[2020-12-04] MEDS ORDERED: PHENYLEPHRINE-NS 100 MCG/ML 10 ML SYRINGE ONE (07:58)
[2020-12-04] MEDS ORDERED: Rocuronium Bromide 10 MG/ML (10ML VIAL) ONE (07:58)
[2020-12-04] MEDS ORDERED: Protamine Sulfate 50 MG/5 ML VIAL ONE ×2 (10:23→10:34)
[2020-12-04] MEDS ORDERED: SUGAMMADEX SODIUM 200 MG/2 ML VIAL ONE (11:22)
[2020-12-04] MEDS ORDERED: Acetaminophen/Codeine 30-300mg Tablet ONE ×2 (11:27→12:05)
[2020-12-04] MEDS ORDERED: Acetaminophen/Codeine 30-300mg Tablet PO PRN (11:30)
[2020-12-04] MEDS ORDERED: Montelukast Sodium 10 mg Tablet PO PRN (11:33)
[2020-12-04] MEDS ORDERED: traMADol HCl 50 MG TAB PO PRN (11:34)
[2020-12-04] MEDS ORDERED: Ketorolac Tromethamine 30 MG/ML VIAL IVP PRN (11:35)
[2020-12-04] MEDS ORDERED: Potassium Chloride 20 MEQ TAB PO PRN (11:36)
[2020-12-04] MEDS ORDERED: Furosemide 40 MG TAB PO PRN (11:36)
[2020-12-04] MEDS: Sucralfate 1 GM TAB PO SCH ×2 (13:02→18:05)
[2020-12-04] MEDS: Acetaminophen/Codeine 30-300mg Tablet PO PRN ×2 (18:18→21:57)
[2020-12-04] MEDS ORDERED: Apixaban 2.5 MG TAB PO SCH (21:00)
[2020-12-04] MEDS ORDERED: traZODone HCl 150 MG TAB PO SCH (21:00)
[2020-12-04] MEDS ORDERED: traZODone HCl 50 MG TAB PO SCH (21:00)
[2020-12-04] MEDS ORDERED: Atorvastatin Calcium 20 MG TAB PO SCH (21:00)
[2020-12-05] MEDS: Sucralfate 1 GM TAB PO SCH ×2 (00:43→05:35)
[2020-12-05 04:00] VITALS: TEMP 98.1
[2020-12-05 08:40] VITALS: BP 106/60
[2020-12-05] MEDS ORDERED: Atenolol 50 MG TAB PO SCH (09:00)
[2020-12-05] MEDS ORDERED: Multivitamin W/ Minerals 1 TAB PO SCH (09:00)
[2020-12-05] MEDS ORDERED: Apixaban 5 MG TAB PO SCH (09:00)
[2020-12-05] MEDS ORDERED: Atenolol 25 MG TAB PO SCH (21:00)
== END 2020-12-05 11:57 | disposition home or self-care (01) ==
LOC: CCL 06:13 → SURG A 10:22 → 2SW 12:56
PROVIDERS: ADMIT Internal Medicine Cardiovascular Disease; ATTEND Internal Medicine Cardiovascular Disease
PROC: 02583ZZ Destruction of Conduction Mechanism, Percutaneous Approach (ICD-10-PCS; principal; 2020-12-04)
PROC: 02K83ZZ Map Conduction Mechanism, Percutaneous Approach (ICD-10-PCS; 2020-12-04)
PROC: 4A023FZ Measurement of Cardiac Rhythm, Percutaneous Approach (ICD-10-PCS; 2020-12-04)
PROC: 4A0234Z Measurement of Cardiac Electrical Activity, Percutaneous Approach (ICD-10-PCS; 2020-12-04)
DX: I48.19 Other persistent atrial fibrillation (principal); I48.92 Unspecified atrial flutter; I10 Essential (primary) hypertension; M19.90 Unspecified osteoarthritis, unspecified site; F17.290 Nicotine dependence, other tobacco product, uncomplicated; I08.8 Other rheumatic multiple valve diseases; Z79.01 Long term (current) use of anticoagulants; Z79.899 Other long term (current) drug therapy; Z88.0 Allergy status to penicillin
CPT/HCPCS: 76942; 82962 ×2; 85347 ×2; 93005 ×2; 93613; 93622; 93623; 93655; 93656; 93662; C1732 ×2; C1759; C1884; 36416; 93010; G0378; J1644; J2405; J2704; J2720; J3010

== ENCOUNTER 2023-07-22 14:26 | Outpatient (CLI) | payer MEDICARE | END 2023-07-22 14:27 | disposition home or self-care (01) | LOC: SCSMRI 14:26 → BICMRI 14:27 | PROVIDERS: ATTEND Orthopaedic Surgery | DX: S83.241A Other tear of medial meniscus, current injury, right knee, initial encounter (principal); S83.231A Complex tear of medial meniscus, current injury, right knee, initial encounter; M22.2X1 Patellofemoral disorders, right knee; M25.461 Effusion, right knee; M71.21 Synovial cyst of popliteal space [Baker], right knee ==

== ENCOUNTER 2023-10-01 13:28 | Outpatient (CLI) | payer MEDICARE | END 2023-10-01 13:29 | disposition home or self-care (01) | LOC: ULT 13:28 | PROVIDERS: ATTEND Family Medicine | DX: L03.90 Cellulitis, unspecified (principal); M79.604 Pain in right leg ==